=== PATIENT | female | born 1955 | race Caucasian/White ===

== ENCOUNTER 2024-08-08 08:45 | Emergency (ER) | payer MEDICARE, SELFPAY ==
[2024-08-08 08:57] VITALS: BP 132/76; PULSE 85; RESP 18; TEMP 36.4; O2SAT 97; BMI 34.2
--- NOTE | 2024-08-08 09:03 | CRLHL7_ITS ---
For Patients: As a result of the Century Cures Act, medical imaging exams and procedure reports are released immediately into your electronic medical record. You may view this report before your referring provider. If you have questions, please contact your health care provider. Indication: GI BLEED Technique: CT Abdomen/Pelvis W/ 93CC ISOVUE 370 Please note that all CT scans at this facility use dose modulation, iterative reconstruction, and/or weight-based dosing when appropriate to reduce radiation dose to as low as reasonably achievable. Comparison: None Findings: Mild atelectasis is present in both lung bases. The liver parenchyma is within normal limits with incidental focal fat deposition adjacent to the falciform ligament. The gallbladder is normal. Normal pancreas. Normal spleen. Incidental subcentimeter splenule. Adrenal glands normal. Normal kidneys. Ureter is within normal limits. Normal pancreas. Small fat filled umbilical hernia. Long segmental wall thickening of the distal left colon/proximal sigmoid colon extending over a length of approximately 10 cm. Associated wall thickening noted with inflammatory changes in the adjacent fat along with a few small subcentimeter nodules. Diverticular changes are present. No bowel obstruction, free air, free fluid or abscess. The bladder is normal. Normal uterus. Adnexa unremarkable. No fracture. Impression: Long segment wall thickening with diverticula involving the distal left colon/proximal sigmoid colon with associated acute inflammatory change and small adjacent mesenteric subcentimeter lymph nodes. Although the findings may represent acute uncomplicated diverticulitis superimposed upon chronic diverticulosis, can not exclude underlying malignancy and recommend colonoscopy for further evaluation. Please note that all CT scans at this facility use dose modulation, iterative reconstruction, and/or weight-based dosing when appropriate to reduce radiation dose to as low as reasonably achievable. Dictated by Carroll Zavala MD @ 08/08/2024 10:43:08 AM (Electronically Signed)
--- NOTE | 2024-08-08 09:04 | ED.GIBLEED ---
HPI - GI Bleed General Chief complaint: GI Bleed Stated complaint: Anal bleeding Time Seen by Provider: 08/08/24 08:57 History of Present Illness HPI Narrative: Patient is a 68-year-old woman who presents with the bright red blood per rectum for the last week. She began passing clots earlier today. She has no abdominal pain no rectal pain. No diarrhea. No fevers no chills no night sweats no reflux symptoms. No symptoms of dysphagia. Patient had normal colonoscopy 2016 and has had no similar problems previously. She takes no blood thinners or anticoagulants. No anti-platelet agents. Related Data Home Medications ?Medication ?Instructions ?Recorded ?Confirmed atorvastatin 1 tab PO HS 08/08/24 08/08/24 Allergies Allergy/AdvReac Type Severity Reaction Status Date / Time mold Allergy Unknown Verified 08/08/24 10:06 pollen extracts Allergy Unknown Verified 08/08/24 10:06 Review of Systems Status of ROS: Reports: 10 or more systems reviewed and unremarkable except as noted in History and below [facility] Medical History (Updated 08/08/24 @ 10:50 by Beny Mcallister MD) Hyperlipidemia ?E78.5 - Hyperlipidemia, unspecified (ICD-10) Hypertension ?I10 - Essential (primary) hypertension (ICD-10) Social History Smoking Status: Never smoker Do you use any of these nicotine containing products: None Second hand tobacco smoke exposure: No How often do you have a drink containing alcohol: monthly or less How often do you have six or more drinks on one occasion: Never AUDIT-C Alcohol total score: 1 Non-prescribed substance use: denies use Exam Narrative: Exam Narrative: EXAM GENERAL: Patient appears comfortable and well. EYES: No scleral icterus. LYMPH: No supraclavicular or cervical lymphadenopathy. SKIN: Visible skin seen during exam normal or with benign process only. EXT: No dependent lower extremity pedal edema. HEART: Regular rate and rhythm with no murmurs, rubs, or gallops. LUNGS: Clear to auscultation bilaterally with no crackles or wheezes. ABD: Soft, non tender, non distended. PSYCH: Good eye contact, speech is not pressured. Const: Vital Signs, click to edit/add: Vital Signs - 24 hr 08/08/24 08:57 08/08/24 10:00 Temperature 97.5 F L Pulse Rate [Pulse Oximeter] 85 69 Respiratory Rate 18 16 Blood Pressure [Ri ght Upper Arm] 132/76 135/74 Pulse Oximetry 97 98 Oxygen Delivery Me thod Room Air Room Air Course Course ED Course: Patient appears to be in no acute distress. CBC CMP PT PTT CT abdomen pelvis pending. Vital Signs Vital signs: Initial Vital Signs Temperature 97.5 F L 08/08/24 08:57 Temperature Source Temporal Artery Scan 08/08/24 08:57 Pulse Rate 85 08/08/24 08:57 Respiratory Rate 18 08/08/24 08:57 Blood Pressure 132/76 08/08/24 08:57 Blood Pressure Mean 94 08/08/24 08:57 Blood Pressure Position Sitting 08/08/24 08:57 Pulse Oximetry 97 08/08/24 08:57 Oxygen Delivery Method Room Air 08/08/24 08:57 Vital Signs Temperature 97.5 F L 08/08/24 08:57 Pulse Rate 85 08/08/24 08:57 Respiratory Rate 18 08/08/24 08:57 Blood Pressure 132/76 08/08/24 08:57 Pulse Oximetry 97 08/08/24 08:57 Oxygen Delivery Method Room Air 08/08/24 08:57 Temperature 97.5 F L 08/08/24 08:57 Pulse Rate 69 08/08/24 10:00 Respiratory Rate 16 08/08/24 10:00 Blood Pressure 135/74 08/08/24 10:00 Pulse Oximetry 98 08/08/24 10:00 Oxygen Delivery Method Room Air 08/08/24 10:00 MDM - GI Bleed MDM Narrative Medical decision making narrative: Patient is a 68-year-old woman who is not on any blood thinners or anti-platelet agents who comes in today with bright red blood per rectum. Her hemoglobin and vital signs are stable. Labs are normal. She does have diverticulitis noted on her CT scan at this time we will place her on Augmentin 875 b.i.d. for 10 days. She can use Tylenol for pain continue to monitor bleeding she does have follow-up in 3 days with her primary physician. Would recommend discussion of a repeat colonoscopy at that time. Her most recent colonoscopy was in 2017. Differential diagnosis includes but not limited to diverticular bleed diverticulitis colitis colon cancer colon polyps inflammatory bowel disease. Lab Data Labs: Lab Results 08/08/24 Range/Units 09:15 WBC 10.55 (4.50-11.00) K/uL RBC 4.30 (4.00-5.20) m/uL Hgb 13.8 (12.0-16.0) gm/dL Hct 41.8 (33.0-51.0) % MCV 97 (80-100) fL MCH 32 (26-34) pg MCHC 33 (32-36) gm/dL RDW Coeff of Clover 11.8 (11.5-15.5) % Plt Count 286 (140-440) K/uL Neut % (Auto) 75.5 H (42.0-72.0) % Lymph % (Auto) 13.4 L (20-44) % [place] % (Auto) 7.3 (0.0-11.0) % Eos % (Auto) 2.8 (0.0-7.0) % Baso % (Auto) 0.8 (0.0-3.0) % Neut # (Auto) 8.00 H (1.7-7.0) K/uL Lymph # (Auto) 1.40 (0.90-2.90) K/uL [place] # (Auto) 0.80 (0.00-0.90) K/UL Eos # (Auto) 0.30 (0.00-0.50) K/uL Baso # (Auto) 0.08 (0.00-0.30) K/uL Abs Immat Gran (auto) 0.02 (0.00-0.30) K/uL Imm/Tot Granulo (auto) 0.2 % INR 0.98 (0.91-1.10) APTT 25 (23-33) Seconds Sodium 137 (135-149) mmol/L Potassium 3.7 (3.6-5.1) mmol/L Chloride 98 (96-114) mmol/L Carbon Dioxide 30 (20-32) mmol/L Anion Gap 9 (7-15) mEq/L BUN 11 (7-30) mg/dL Creatinine 0.7 (0.5-1.5) mg/dL Estimated Creat Clear 42.59 Estimated GFR 94 ml/min Glucose 115 (60-115) mg/dL Calcium 9.4 (8.4-10.6) mg/dL Total Bilirubin 0.5 (0.1-1.5) mg/dL AST 30 (12-35) U/L ALT 23 (4-35) U/L Alkaline Phosphatase 94 (40-150) U/L Total Protein 7.8 (6.0-8.3) g/dL Albumin 4.6 (3.3-5.0) g/dL Discharge Plan Discharge Clinical Impression: Diverticulitis Instructions: Diverticulitis (ED) Additional Instructions: Augmentin as directed Tylenol Monitor bleeding carefully Follow-up on Saturday to discuss further lab work and possible colonoscopy. Activity Level: No Restrictions Discharge Diet: Regular Prescriptions: No Action atorvastatin [Lipitor] 1 tab PO HS Follow Up/Referrals: Stella Coyne MD [Primary Care Provider] - Stand Alone Forms: MyHealth Info Instructions
--- OUTSIDE RECORDS SUMMARY | 2024-08-08 09:15 | XMS_ITS | Clinical Summary ---
Author Organization [facility] Address [place], [place] [address] Care Team Providers Care Domestic Freight Forwarder Name Role Phone Clinic, No Pcp Or Primary Care Provider Unavaila ble Allergies No known active allergies Medications Medication Sig Dispensed Refills Start Date End Date Status Cholecalciferol, Vitamin D3, 400 unit capsule Active artificial tears, peg 400 0.4%-propylene glycol 0.3%, (Systane, propylene glycoL,) ophthalmic Place 1-2 Drops into both eyes once daily if needed for Dry Eyes. Active multivitamin capsule Take 1 Tablet by mouth once daily. Active vitamin E acetate (VITAMIN E ORAL) Active polyethylene glycol-electrolyte (GOLYTELY) 236-22.74-6.74 -5.86 gram suspensionIndication s:Encounter for screening colonoscopy Drink 2 liters the day before the procedure and 2 liters 6 hours prior to procedure. 4000 mL 10/11/2023 Active atorvastatin (Lipitor) 40 mg tabletIndications:Hy percholesterolemia Take 1 Tablet (40 mg) by mouth at bedtime. 100 Tablet 3 10/01/2023 Active Active Problems Problem Noted Date Diagnosed Date Hypercholesterolemia 09/24/2023 Encounters Date Type Department Care Team Description 08/07/2024 Travel from Last 3 Months Immunizations Name Administration Dates Next Due Influenza, IIV4 07/20/2020 Influenza, IIV4 (=>6mos) MDV 08/28/2019 Influenza, Inactivated AIIV4 (Age 65+ Years) Preserv Free 09/23/2023 Td (Age >=7 Years) 12/16/2003 Tdap 01/22/2014 Family History Medical History Relation Name Comments No Known Problems Brother 1 Rod No Known Problems Brother 2 Heber No Known Problems Brother 3 Constantine Other Daughter Maren Tetrology of llot COPD Father Heart Disease Father Heart attack Mother No Known Problems Sister 1 Missy No Known Problems Sister 2 Suzanne No Known Problems Sister 3 Nati Relation Name Status Comments Brother 1 Rod Alive Brother 2 Heber Alive Brother 3 Constantine Alive Daughter Maren Alive Father Maternal Grandfather Maternal Grandmother Mother Paternal Grandfather Paternal Grandmother Sister 1 Missy Alive Sister 2 Suzanne Alive Sister 3 Nati Alive Social History Tobacco Use Types Packs/Day Years Used Date Smoking Tobacco: Former Cigarettes 1 8 1 - 1980 Passive Smoke Exposure: Past Smokeless Tobacco: Never Tobacco Cessation:Counseling Given: Yes Alcohol Use Standard Drinks/Week Comments Yes 6 (1 standard drink = 0.6 oz pure alcohol) 5-6 days a week; 1-2 drinks at a time PHQ-2 Answer Date Recorded PHQ-2 TOTAL SCORE 1 09/23/2023 Social Connections Answer Date Recorded Frequency of Communication with Friends and Fami ly 0 09/23/2023 Financial Resource Strain Answer Date R ecorded Difficulty of Paying Living Expenses 3 09/23/2023 Difficulty of Paying Living Expenses Not on file 09/23/2023 Food Insecurity Answer Date Recorded Do you worry your food will run out before you are able to buy more? 1 09/23/2023 Transportation Needs Answer Date Record ed Lack of Transportation (Medical) 1 09/23/2023 Housing Stability Answer Date Recorded What is your housing situation today? 1 09/23/2023 Sex and Gender Information Value Date Recorded Sex Assigned at Not on file Gender Identity Not on file Sexual Orientation Not on file Obstetrics History Para Term AB IAB SAB Ectopic Multiple Livin g Live Births 1 1 1 1 1 Date Outcome GA Total Labor Labor/2nd/3rd Weight Sex Type Anes PTL Susan A1 A5 Name Clin 09/11 Term F Vag Living Hanh e Last Filed Vital Signs Vital Sign Reading Time Taken Comments Blood Pressure 128/68 09/23/2023 8:23 AM LABEL PINKER Pulse 80 09/23/2023 8:23 AM LABEL PINKER Temperature - - Respiratory Rate - - Oxygen Saturation - - Inhaled Oxygen Concentration - - Weight 85.7 kg (189 lb) 09/23/2023 8:23 AM LABEL PINKER Height 157.5 cm (5' 2) 09/23/2023 8:23 AM LABEL PINKER Body Mass Index 34.57 09/23/2023 8:23 AM LABEL PINKER Plan of Treatment Upcoming Encounters Date Type Department Care Team (Late st Contact Info) Description 08/11/2024 8:20 AM CDT [place] [facility] [place] [id number] [place], [place] [id number] [place] [id number] [place], [place] [id number] Health Maintenance Due Date Last Done Comments Zoster (shingles) series for age 50+ (1 of 2) 2005 Pneumococcal series for age 65+ (1 of 1 - PCV) 2020 Tetanus booster 01/23/2024 01/22/2014, 12/16/2003 COVID-19 vaccine series ( season) 2024 02/08/2021, 01/18/2021 Influenza for age 65+ 06/14/2024 09/23/2023 , 07/20/2020, 08/28/2019 BMI (ht and wt on same day) for age 18+ 09/23/2024 09/23/2023 Medicare Wellness for age 65+ 09/23/2024 09/23/2023 Depression screening for age 12+ 10/01/2024 10/01/2023, 09/24/2023, 09/23/2023, Additional history exists Mammogram for age 45-75 10/30/2024 10/30/2023 Colonoscopy through age 75 07/12/202707/12 (Verified in Care Everywhere or Patient Record) Lipids for age 45-75 01/20/2029 01/21/2024, 09/23/20 Tdap Completed 01/22/2014 Hepatitis C screening for ag e 18-79 Completed 09/23/2023 DEXA/DXA scan for age 65+ Completed 10/28/2023 Procedures Procedure Name Priority Date/Time Associated Diagnosis Comments LIPID PANEL W REFLEX MEASURED LDL Routine 01/21/2024 8:45 AM CDT Hypercholesterolemi a XR MAMMO KELVIN BILAT SCREEN Routine 10/30/2023 8:47 AM LABEL PINKER Encounter for screening mammogram for malignant neoplasm of breast XR DXA BONE DENSITY 2 SITES AXIAL Routine 10/28/2023 11:14 AM LABEL PINKER Menopause ANTI HCV Routine 09/23/2023 9:00 AM LABEL PINKER Need for hepatitis C screening test from Last 3 Months or Most Recently Relevant to Health Maintenance Results * LIPID PANEL W REFLEX MEASURED LDL (01/21/2024 8:45 AM CDT) Pathologist [facility] CHOLESTEROL,TOTAL 199 100 - 199 mg/dL 01/21/2024 4:17 PM CDT [facility] Comment: Cholesterol, Total Reference Ranges Desirable <200 mg/dL Borderline 200-239 mg/dL High >=240 mg/dL TRIGLYCERIDES 131 <150 mg/dL 01/21/2024 4:17 PM CDT [facility] HDL CHOLESTEROL 74 >40 mg/dL 4:17 PM CDT [facility] NON-HDL CHOLESTEROL 125 <145 mg/dl 01/21/2024 4:17 PM CDT [facility] CHOL/HDL RATIO 2.69 <4.50 01/21/2024 4:17 PM CDT [facility] LDL CHOLESTEROL 99 <=130 mg/dL 01/21/2024 4:17 PM CDT [facility] VLDL CHOLESTEROL 26 <=30 mg/dL 01/21/2024 4:17 PM CDT [facility] PROVIDER ORDERED STATUS RANDOM 01/21/2024 4:17 PM CDT [facility] Blood BLOOD SPECIMEN / Unknown Venipuncture / Unknown 01/21/2024 8:45 AM CDT 01/21/2024 8:45 AM CDT Stella Coyne MD CHEMISTRY [facility] [address] [place] [address], [place] * XR MAMMO KELVIN BILAT SCREEN (10/30/2023 8:47 AM LABEL PINKER) Anatomical Region Laterality Modality BREASTS, Breast Left, Breast Right Bilateral Mammography Impressions 10/30/2023 4:21 PM LABEL PINKER ??There is no radiographic evidence for malignancy. ??Recommend annual mammograms. MAMMOGRAM ASSESSMENT: ??ACR 1 Negative PATIENTS: You will also receive a letter with your examination results in an easy to read format. ??If you have questions about your results, please contact your referring provider. Narrative 10/30/2023 4:21 PM LABEL PINKER For Patients: As a result of the Century Cures Act, medical imaging exams and procedure reports are released immediately into your electronic medical record. You may view this report before your referring provider. If you have questions, please contact your health care provider. XR MAMMO KELVIN BILAT SCREEN [[id number]] CLINICAL HISTORY: ??This is an asymptomatic 67 y.o. patient. INDICATION FOR EXAM: Mammogram Screening. TECHNIQUE: CC & MLO views were obtained. ??This study was evaluated with the assistance of Computer-Aided Detection. Breast Tomosynthesis was used in interpretation. COMPARISON FILM: Yes 09/23/20 Outside Facility 08/21/18 Outside Facility FINDINGS: ??The breasts have scattered areas of fibroglandular density. There are no dominant masses, suspicious micro calcifications or areas of architectural distortion. Stella Coyne MD MAMMO * (ABNORMAL) XR DXA BONE DENSITY 2 SITES AXIAL (10/28/2023 11:14 AM LABEL PINKER) Anatomical Region Laterality Modality Spine, HIPS, HIPL, HIPR Other Impressions 10/30/2023 4:46 PM LABEL PINKER Osteopenia. RECOMMENDATIONS: The National Osteoporosis Foundation recommends pharmacologic treatment for patients with T-scores of -2.5 or less, patients with prior history of fragility fractures, or patients with 10-year probability of greater than 3% at hips or greater than 20% of suffering major osteoporotic fractures. Recommend continued optimization of calcium and vitamin D intake through dietary means and/or supplementation and regular exercise. Repeat scan recommended in 3-5 years. Renu Gupta PA-C [facility] 10/30/2023 Narrative 10/30/2023 4:46 PM LABEL PINKER For Patients: Results are automatically released to your [facility] account once available, in compliance with federal regulations. This means that you may see your results before your provider has had a chance to review them. Please allow 2-3 business days for your provider to comment on the results. XR DXA Bone Mineral Density (BMD) EXAM LOCATION: [address] [address] PATIENT NAME: Lynn Meyer DATE OF : 1955 EXAM DATE: 10/28/2023 REQUESTING PROVIDER: Stella Coyne MD GENDER AT : female HEIGHT: 5' 2 (09/23/2023) WEIGHT: ??189 lb (09/23/2023) MENOPAUSAL STATUS: Postmenopausal RACE/ETHNICITY: White RISK FACTORS: History of Fragility Fracture (at a major site), Menopause < Age 40, Smoking (prior), and White Race CURRENT MEDICATION FOR BONE LOSS: NONE INDICATION: Menopause COMPARISON DATE(S): None DXA scans are compared to prior studies for a patient only when the two (or more) studies were performed on the same scanner. It is not possible to compare data generated on one scanner to data from another because there are not standards in DXA equipment. This applies even if the two scanners are made by the same reefer engineer. PROCEDURE: Dual-energy x-ray absorptiometry performed with routine technique. Reporting is completed in the form of a T-score. The T-score represents the standard deviation from peak bone mass based on young healthy adult. A Z-score is used for diagnosis in premenopausal women, and for men under the age of 50. FINDINGS: RESULT LUMBAR SPINE L1 - L4 BMD: 1.010 g/cm2 T-Score: - 1.5 Z-Score: - 0.6 Change from prior: ??None RESULTS FEMUR Left femoral neck BMD: 0.841 g/cm2 T-Score: - 1.4 Z-Score: - 0.3 Change from prior: ??None Right femoral neck BMD: 0.865 g/cm2 T-Score: - 1.2 Z-Score: - 0.1 Change from prior: ??None Left hip BMD: 0.925 g/cm2 T-Score: - 0.7 Z-Score: + 0.2 Change from prior: ??None Right hip BMD: 1.017 g/cm2 T-Score: + 0.1 Z-Score: + 0.9 Change from prior: ??None WHO criteria: Normal: T-score at or above -1 SD Osteopenia: T-score between -1.1 and -2.4 SD Osteoporosis: T-score at or below -2.5 SD FRAX RISK CALCULATION (USED FOR OSTEOPENIA ONLY): 10-year probability of major osteoporotic fracture: 14.2%. 10-year probability of hip fracture: 1.6%. Stella Coyne MD DEXA * ANTI HCV (09/23/2023 9:00 AM LABEL PINKER) Pathologist [facility] HEPATITIS C ANTIBODY Non-Reacti ve Non-React florentin 09/23/2023 6:32 PM LABEL PINKER [facility] Comment:Please note, per www .CDC.gov: If a patient is known to be at high risk of HCV infection, or is symptomatic, and the physician's suspicion of HCV infection is high, HCV RNA testing is often employed and is of diagnostic value, even after an initial negative anti-HCV test result. Blood BLOOD SPECIMEN / Unknown Venipuncture / Unknown 09/23/2023 9:00 AM LABEL PINKER 09/23/2023 9:01 AM LABEL PINKER Stella Coyne MD SEND OUTS [facility] [address] [place] [address], from Last 3 Months or Most Recently Relevant to Health Maintenance Care Teams Domestic Freight Forwarder Relationship Specialty Start Date End Date Clinic, No Pcp Or . PCP - General 09/09/23
[2024-08-08 09:25] LABS: Basophils Absolute Auto 0.08 K/uL (0.00-0.30); Basophils Percent Auto 0.8 % (0.0-3.0); Eosinophils Percent Auto 2.8 % (0.0-7.0); Hematocrit 41.8 % (33.0-51.0); Hemoglobin* 13.8 gm/dL (12.0-16.0); Immature Granulocytes Abs Auto 0.02 K/uL (0.00-0.30); Immature Granulocytes Pct Auto 0.2 %; Lymphocytes Percent Auto 13.4 % (20-44); Mean Corpuscular HGB Conc 33 gm/dL (32-36); Mean Corpuscular Hemoglobin 32 pg (26-34); Mean Corpuscular Volume 97 fL (80-100); Monocytes Percent Auto 7.3 % (0.0-11.0); Neutrophils Percent Auto 75.5 % (42.0-72.0); Platelet Count* 286 K/uL (140-440); RDW Coefficient of Variation % 11.8 % (11.5-15.5); White Blood Count* 10.55 K/uL (4.50-11.00)
[2024-08-08 09:26] LABS: Slide Review Reflex No
[2024-08-08 09:43] LABS: Albumin* 4.6 g/dL (3.3-5.0); Chloride* 98 mmol/L (96-114); Sodium* 137 mmol/L (135-149)
[2024-08-08 09:44] LABS: Potassium* 3.7 mmol/L (3.6-5.1)
[2024-08-08 09:46] LABS: Alanine Aminotransferase* 23 U/L (4-35); Alkaline Phosphatase* 94 U/L (40-150); Anion Gap 9 mEq/L (7-15); Aspartate Amino Transferase* 30 U/L (12-35); Bilirubin Total* 0.5 mg/dL (0.1-1.5); Blood Urea Nitrogen* 11 mg/dL (7-30); Carbon Dioxide* 30 mmol/L (20-32); Creatinine* 0.7 mg/dL (0.5-1.5); Est. Creatinine Clearance* 42.59; Estimated Glomerular Filt Rate 94 ml/min; Glucose* 115 mg/dL (60-115); INR 0.98 (0.91-1.10); Prothrombin Time 13.5 Seconds; Total Protein* 7.8 g/dL (6.0-8.3)
[2024-08-08 09:47] LABS: Calcium* 9.4 mg/dL (8.4-10.6); Partial Thromboplastin Time* 25 Seconds (23-33)
[2024-08-08 10:00] VITALS: BP 135/74; PULSE 69; RESP 16; O2SAT 98
== END 2024-08-08 11:03 | disposition home or self-care (01) ==
PROVIDERS: Emergency Provider Internal Medicine; PCP Family Medicine
DX: K57.92 Diverticulitis of intestine, part unspecified, without perforation or abscess without bleeding (principal)
CPT/HCPCS: 36415; 74177; 80053; 85025; 85610; 85730; 99283; 99284; 99285; Q9967

== ENCOUNTER 2025-01-11 11:51 | Emergency (ER) | payer MEDICARE, SELFPAY ==
[2025-01-11] VITALS (8 sets, daily range): BP systolic 179–190; BP diastolic 82–100; PULSE 72–87; RESP 18; TEMP 36.2; O2SAT 96–98; BMI 34.0
--- OUTSIDE RECORDS SUMMARY | 2025-01-11 11:54 | XMS_ITS | Encounter Summary ---
Author Organization [facility] Address [address] [place] [address] Care Team Providers Care Scrap Picker Name Role Phone Alea Jones MD, Remi Esparza Primary Care Provide r Encounter Details Date Type Department Care Team (Late st Contact Info) Description 10/31/2015 Correspondence None No Primary/Referring, Phy CHIROPRACTIC PATIENT LIAB NOTIFICATION AND AGRMNT Social History Tobacco Use Types Packs/Day Years Used Date Smoking Tobacco: Former Cigarettes 0 1976 - 1981 Smokeless Tobacco: Never Comments:age 25 Alcohol Use Standard Drinks/Week Comments Yes 0 (1 standard drink = 0.6 oz pur e alcohol) Comments No Sex and Gender Information Value Date Recorded Sex Assigned at Not on file Legal Sex Female 5:02 AM CDT Gender Identity Not on file Sexual Orientation Not on file 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 Not on file Not on file documented as of this encounter Plan of Treatment Not on file documented as of this encounter Visit Diagnoses Not on filedocumented in this encounter Additional Health Concerns Infection Onset Date Last Indicated Resolved Time R/O COVID19 09/10/2020 09/10/2020 09/12/2020 8:25 AM ARCHITECTURAL ENGINEER COVID19 09/10/2020 09/10/2020 10/01/2020 3:17 AM ARCHITECTURAL ENGINEER documented as of this encounter Care Teams Scrap Picker Relationship Specialty Start Date End Date Remi Cosby MD [address] [place] [address] PCP - General 05/14/06 documented as of this encounter
--- OUTSIDE RECORDS SUMMARY | 2025-01-11 11:54 | XMS_ITS | Encounter Summary ---
Author Organization [facility] Address [address] [place] [address] Care Team Providers Care Service Delivery Consultant Name Role Phone Alea Jones MD, Remi Esparza Primary Care Provide r Encounter Details Date Type Department Care Team (Late st Contact Info) Description 07/12/2017 Consent for Procedure/Treatme nt [facility] INFORMED CONSENT RECORD Social History Tobacco Use Types Packs/Day Years Used Date Smoking Tobacco: Former Cigarettes 0 1976 - 1981 Smokeless Tobacco: Never Comments:age 25 Alcohol Use Standard Drinks/Week Comments Yes 3 (1 standard drink = 0.6 oz pur [...] R/O COVID19 09/10/2020 09/10/2020 09/12/2020 8:25 AM DEICER KIT ASSEMBLER COVID19 09/10/2020 09/10/2020 10/01/2020 3:17 AM DEICER KIT ASSEMBLER documented as of this encounter Care Teams Service Delivery Consultant Relationship Specialty Start Date End Date Remi Cosby MD [address] [place] [address] PCP - General 05/14/06 documented as of this encounter
--- OUTSIDE RECORDS SUMMARY | 2025-01-11 11:54 | XMS_ITS | Clinical Summary ---
Author Organization [employer] [facility] Address [address] [place] [id number] Care Team Providers Care International Affairs Vice President Name Role Phone Clinic, No Pcp Or Primary Care Provider Unavaila ble Allergies Active Allergy Reactions Criticality Noted Date Comments Mold Shortness Of Breath 08/08/2024 Pollen Extracts Shortness Of Breath 08/08/2024 Medications Cholecalciferol, Vitamin D3, 400 unit capsule Active artificial tears, peg 400 0.4%-propylene glycol 0.3%, (Systane, propylene glycoL,) ophthalmic Place 1-2 Drops into both eyes once daily if needed for Dry Eyes. Active multivitamin capsule Take 1 Tablet by mouth once daily. Active vitamin E acetate (VITAMIN E ORAL) Active CALCIUM ORAL Take by mouth. Active ascorbic acid (ABEL-C ORAL) Take by mouth. Active atorvastatin (Lipitor) 40 mg tabletIndication s:Hypercholester olemia Take 1 Tablet (40 mg) by mouth at bedtime. 100 Tablet 3 11/26/2024 Active Active Problems Problem Noted Date Diagnosed Date Environmental allergies 09/16/2024 Dizziness 03/18/2014 Backache 04/12/2009 Pure hypercholesterolemia 03/01/2005 Mixed incontinence urge and stress (male)(female ) 04/14/2004 Overview (09/16/2024): URGE & STRESS MIXED INCONTINENCE(aka INCONTIN) Obesity 04/14/2004 Overview (09/16/2024): Epic Resolved Problems Problem Noted Date Diagnosed Date Resolved Date Diverticulitis 09/16/2024 09/16/2024 Closed fracture of right pub is with routine healing 07/03/2020 09/16/2024 Right hip pain 07/03/2020 09/16/2024 Encounters Date Type Department Care Team Description 01/11/2025 Nurse Triage [facility] Centralized Nurse Triage Clinic, No Pcp Or Fall (Head injury) 11/26/2024 11:00 AM [facility] Ancillary Procedure [facility] [address] [place] [address] 11/26/2024 7:40 AM [facility] Office Visit [facility] [address] [place] [address] Stella Coyne MD Medicare ANNUAL (subsequent) Visit 11/26/2024 Travel 11/25/2024 Refill [facility] [address] [place] [address] Stella Coyne MD Refill Request (Atorvastatin) 11/21/2024 Travel from Last 3 Months Immunizations Immunization Administration Dates Next Due Influenza, IIV4 07/20/2020 Influenza, IIV4 (=>6mos) MDV 08/28/2019 Influenza, Inactivated AIIV4 (Age 65+ Years) Preserv Free 09/23/2023 Td (Age >=7 Years) 12/16/2003 Tdap 01/22/2014 Family History Medical History Relation Name Comments No Known Problems Brother 1 Rod No Known Problems Brother 2 Heber No Known Problems Brother 3 Constantine Tetrology of Fallot Daughter Maren COPD Father Heart Disease Father Heart attack [...] Smoking Tobacco: Former Cigarettes 1 8 1 973 - 1981 Passive Smoke Exposure: Past Smokeless Tobacco: Never Tobacco Cessation:Counseling Given: Yes Alcohol Use Standard Drinks/Week Comments Yes 2 (1 standard drink = 0.6 oz pure alcohol) 2-3 days a week; 1-2 drinks at a time PHQ-2 Answer Date Recorded PHQ-2 TOTAL SCORE 0 11/26/2024 Social Connections Answer Date Recorded Do you often feel lonely or isolated from those around you? 0 11/26/2024 Financial Resource Strain Answer Date R ecorded Difficulty of Paying Living Expenses 3 11/26/2024 Difficulty of Paying Living Expenses Not on file 11/26/2024 Food Insecurity Answer Date Recorded Do you worry your food will run out before you are able to buy more? 1 11/26/2024 Transportation Needs Answer Date Record ed Does lack of transportation keep you from medica l appointments? 1 11/26/2024 Does lack of transportation keep you from work, meetings or getting things that you need? 1 11/26/2024 Housing Stability Answer Date Recorded What is your housing situation today? 1 11/26/2024 Utilities Answer Date Recorded Do you have trouble paying f or utilities (for example, heat, electricity, water, phone)? 1 11/26/2024 Comments No Sex and Gender Information Value Date Recorded Sex Assigned at Not on file Legal Sex Female 10:26 AM CDT Gender Identity Not on file Sexual Orientation Not on file Occupation Industry Job Start Date Job End Date Retired Not on file Not on file Not on file Obstetrics History Para Term AB IAB SAB Ectopic Multiple Livin g Live Births 1 1 1 1 1 Date Outcome GA Total Labor Labor/2nd/3rd Weight Sex Type Anes PTL Susan A1 A5 Name Clin 09/11 Term F Vag Living Hanh e Last Filed Vital Signs Vital Sign Reading Time Taken Comments Blood Pressure 138/84 11/26/2024 7:47 AM [facility] Pulse 74 11/26/2024 7:47 AM [facility] Temperature 36.9 C (98.4 F) 09/16/2024 8:56 AM [facility] Respiratory Rate - - Oxygen Saturation 95% 11/26/2024 7:47 AM [facility] Inhaled Oxygen Concentration - - Weight 84.5 kg (186 lb 4.8 oz) 11/26/2024 7:47 A M [facility] Height 157 cm (5' 1.81) 11/26/2024 7:47 AM [facility] Body Mass Index 34.28 11/26/2024 7:47 AM [employer] Plan of Treatment Health Maintenance Due Date Last Done Comments Pneumococcal series for age 50+ (1 of 1 - PCV) 2005 Zoster (shingles) series for age 50+ (1 of 2) 2005 RSV vaccine for adults or (1 - Risk 60-74 years 1-dose series) 2015 Tetanus booster 01/23/2024 01/22/2014, 12/16/2003 COVID-19 vaccine series (3 - season) 2024 02/08/2021, 01/18/2021 Influenza Vaccine (#1) 2024 , 07/20/2020, 08/28/2019 BMI (ht and wt on same day) for age 18+ 11/26/2025 11/26/2024, 09/16/2024, 09/23/2023 Depression screening for age 12+ 11/26/2025 11/26/2024, 10/01/2023, 09/24/2023, Additional history exists Mammogram for age 45-75 11/26/2025 11/26/2024, 10/30 Medicare Wellness for age 65+ 11/27/2025 11/26/2024, 09/23/2023 Lipids for age 45-75 11/26/2029 11/26/2024, 01/21/2024, 09/23/2023 Colonoscopy through age 75 09/28/203409/28, 07/12/2017 (Verified in Care Everywhere or Patient Record) Tdap Completed 01/22/2014 Hepatitis C screening for ag e 18-79 Completed 09/23/2023 DEXA/DXA scan for age 65+ Completed 10/28/2023 Procedures Procedure Name Priority Date/Time Associated Diagnosis Comments XR MAMMO KELVIN BILAT SCREEN Routine 11/26/2024 11:12 AM FAC[facility] Visit for screening mammogram LIPID PANEL W REFLEX MEASURED LDL Routine 11/26/2024 8:04 AM FAC[facility] Hypercholesterolemi a GLUCOSE, FASTING Routine 11/26/2024 8:04 AM FAC[facility] Screening for diabetes mellitus COLONOSCOPY DIAGNOSTIC Routine 09/28/2024 12:00 AM [facility] Diverticulitis XR DXA BONE DENSITY 2 SITES AXIAL Routine 10/28/2023 11:14 AM FAC[facility] Menopause ANTI HCV Routine 09/23/2023 9:00 AM [facility] Need for hepatitis C screening test from Last 3 Months or Most Recently Relevant to Health Maintenance Results * XR MAMMO KELVIN BILAT SCREEN (11/26/2024 11:12 AM FACING [facility]) Anatomical Region Laterality Modality BREASTS, Breast Left, Breast Right Bilateral Mammography Impressions 11/26/2024 3:29 PM [facility] There is no radiographic evidence for malignancy. Recommend annual mammograms. MAMMOGRAM ASSESSMENT: ACR 1 Negative PATIENTS: You will also receive a letter with your examination results in an easy to read format. If you have questions about your results, please contact your referring provider. Narrative 11/26/2024 3:29 PM [facility] For Patients: As a result of the Century Cures Act, medical imaging exams and procedure reports are released immediately into your electronic medical record. You may view this report before your referring provider. If you have questions, please contact your health care provider. XR MAMMO KELVIN BILAT SCREEN [[id number]] CLINICAL HISTORY: This is an asymptomatic 69 y.o. patient. INDICATION FOR EXAM: Mammogram Screening. TECHNIQUE: CC & MLO views were obtained. This study was evaluated with the assistance of Computer-Aided Detection. Breast Tomosynthesis was used in interpretation. COMPARISON FILM: Yes 10/30/23 [facility] FINDINGS: There are scattered areas of fibroglandular density. There are no dominant masses, suspicious micro calcifications or areas of architectural distortion. us Stella Coyne MD MAMMO Final R esult * (ABNORMAL) LIPID PANEL W REFLEX MEASURED LDL (11/26/2024 8:04 AM FACING [facility]) CHOLESTEROL, TOTAL 195 <200 mg/dL [facility] HDL CHOLESTEROL 77 > OR = 50 mg/dL [facility] TRIGLYCERIDES 168(H) <150 mg/dL [facility] LDL-CHOLESTEROL 91 mg/dL (calc) [facility] Comment: Reference range: <100 Desirable range <100 mg/dL for primary prevention; <70 mg/dL for patients with CHD or diabetic patients with > or = 2 CHD risk factors. LDL-C is now calculated using the Victoria calculation, which is a validated novel method providing better accuracy than the Friedewald equation in the estimation of LDL-C. Deonte SS et al. KARY. 2013;310(71): 6514-3770 (http://education.getFound.ie/faq/FPW367) CHOL/HDLC RATIO 2.5 <5.0 (calc) [facility] NON HDL CHOLESTEROL 118 <130 mg/dL (calc) [facility] Comment: For patients with diabetes plus 1 major ASCVD risk factor, treating to a non-HDL-C goal of <100 mg/dL (LDL-C of <70 mg/dL) is considered a therapeutic option. Blood BLOOD SPECIMEN / Unknown 11/26/2024 8:04 AM [facility] 11/26/2024 8:04 AM [employer] [facility] [employer] us Stella Coyne MD CHEMISTRY Final R esult [facility] [address] [place] [address], [facility] [address] [place] [address] * (ABNORMAL) GLUCOSE, FASTING (11/26/2024 8:04 AM FAC[facility]) [facility] GLUCOSE 108(H) 65 - 99 mg/dL [facility] Comment: Fasting reference interval For someone without known diabetes, a glucose value between 100 and 125 mg/dL is consistent with prediabetes and should be confirmed with a follow-up test. Blood BLOOD SPECIMEN / Unknown 11/26/2024 8:04 AM [facility] 11/26/2024 8:04 AM F[employer] [facility] us Stella Coyne MD CHEMISTRY Final R esult [facility] [address] [place] [address], [facility] [address] [place] [address] * COLONOSCOPY DIAGNOSTIC (09/28/2024 12:00 AM FAC[facility]) Stella Coyne MD GI PROCEDURE ORD Final Result * (ABNORMAL) XR DXA BONE DENSITY 2 SITES AXIAL (10/28/2023 11:14 AM FAC[employer] [facility] [employer]) Anatomical Region Laterality Modality Spine, HIPS, HIPL, HIPR Other Impressions 10/30/2023 4:46 PM [facility] Osteopenia. RECOMMENDATIONS: The National Osteoporosis Foundation recommends [...] recommended in 3-5 years. Renu Gupta PA-C [facility] 10/30/2023 Narrative 10/30/2023 4:46 PM [employer] For Patients: Results are automatically released to your cloudswave ([employer]) account once available, in compliance with federal regulations. This means that you may see your results before your provider has had a chance to review them. Please allow 2-3 business days for your provider to comment on the results. XR DXA Bone Mineral Density (BMD) EXAM LOCATION: [facility] [address] [facility] [id number] PATIENT NAME: Lynn Meyer DATE OF : 1955 EXAM DATE: 10/28/2023 REQUESTING PROVIDER: Stella Coyne MD GENDER AT : female HEIGHT: 5' 2 (09/23/2023) WEIGHT: 189 lb (09/23/2023) MENOPAUSAL STATUS: Postmenopausal RACE/ETHNICITY: White [...] two scanners are made by the same bar turner. PROCEDURE: Dual-energy x-ray absorptiometry performed with routine [...] 1.5 Z-Score: - 0.6 Change from prior: None RESULTS FEMUR Left femoral neck BMD: 0.841 g/cm2 T-Score: - 1.4 Z-Score: - 0.3 Change from prior: None Right femoral neck BMD: 0.865 g/cm2 T-Score: - 1.2 Z-Score: - 0.1 Change from prior: None Left hip BMD: 0.925 g/cm2 T-Score: - 0.7 Z-Score: + 0.2 Change from prior: None Right hip BMD: 1.017 g/cm2 T-Score: + 0.1 Z-Score: + 0.9 Change from prior: None WHO criteria: Normal: T-score at or above -1 SD Osteopenia: T-score between -1.1 and -2.4 SD Osteoporosis: T-score at or below -2.5 SD FRAX RISK CALCULATION (USED FOR OSTEOPENIA ONLY): 10-year probability of major osteoporotic fracture: 14.2%. 10-year probability of hip fracture: 1.6%. us Stella Coyne MD DEXA Final R esult * ANTI HCV (09/23/2023 9:00 AM FAC[employer] [facility]) HEPATITIS C ANTIBODY Non-Reacti ve Non-React florentin 09/23/2023 6:32 PM [facility] Comment:Please note, per www .CDC.gov: If a patient is known to be at high risk of HCV infection, or is symptomatic, and the physician's suspicion of HCV infection is high, HCV RNA testing is often employed and is of diagnostic value, even after an initial negative anti-HCV test result. Blood BLOOD SPECIMEN / Unknown Venipuncture / Unknown 09/23/2023 9:00 AM [employer] [facility] [employer] 09/23/2023 9:01 AM F[employer] [facility] [employer] us Stella Coyne MD SEND OUTS Final R esult [facility] [address] [place] [address], [place] from Last 3 Months or Most Recently Relevant to Health Maintenance Insurance [facility] MR Care Teams International Affairs Vice President Relationship Specialty Start Date End Date Clinic, No Pcp Or . PCP - General 09/09/23
--- OUTSIDE RECORDS SUMMARY | 2025-01-11 11:54 | XMS_ITS | Clinical Summary ---
Author Organization Formerly [facility], [facility] Address [address] [place] [address] Care Team Providers Care Aquatic Facility Manager Name Role Phone Alea Jones MD, Roan Sigrid Primary Care Provide r Source Comments You are receiving this document as you are listed as the primary care provider,follow-up provider, or the patient has been referred to you for consultation.This is in compliance with the Medicare and[employer] EHR Incentive Program,which states Providers who transition their patient to another setting of careor provider of care or refers their patient to another provider of care shouldprovide summary care record for each transition of care or referral. [facility] Allergies Active Allergy Reactions Criticality Noted Date Comments Pollen Extract/Tree Extract Itching,Runny Nose High 02/04/2009 Allergic to mold and ragweed. Medications VITAMIN C CR 1000 MG OR TBCR one per day 0 10/22/2006 A ctive ZYRTEC 10 MG OR TABS (ANTI-HISTAMINE ) One by mouth every day 90 2 07/29/2007 Active CALCIUM CARBONATE 1500 MG OR TABSIndications :Esophageal reflux,Varicose vein 1 tab daily 0 06/18/2008 Active Cholecalciferol (VITAMIN D) 400 UNIT Active Naphazoline-Phe niramine (OPCON-A) 0.027-0.315 % eye drop solution Apply or instill into both eyes. Active Polyethyl Glycol-Propyl Glycol (SYSTANE) 0.4-0.3 % eye drop solution 1-2 Drops. Activ e polyvinyl alcohol-povidon e (REFRESH) 1.4-0.6 % eye drop solution 1-2 Drops every 4 hours as needed. Active VITAMIN E OR Active multivitamin (THERAGRAN) tablet Take 1 Tablet by mouth daily. Active Active Problems Problem Noted Date Diagnosed Date Right hip pain 07/03/2020 Closed fracture of right pubis with routine heal ing 07/03/2020 Difficulty walking 07/03/2020 Dizziness 03/18/2014 Lumbago 02/01/2012 Sprain and strain of unspecified site of hip and thigh 02/01/2012 Backache 04/12/2009 Overview (07/14/2015): [facility] Telangiectasia 07/15/2008 Pure hypercholesterolemia 03/01/2005 Esophageal reflux 04/14/2004 Overview (06/05/2017): ESOPHAGEAL REFLUX(aka GERD) Mixed incontinence urge and stress (male)(female ) 04/14/2004 Overview (06/05/2017): URGE & STRESS MIXED INCONTINENCE(aka INCONTIN) Obesity 04/14/2004 Overview (07/14/2015): [facility] Immunizations Immunization Administration Dates Next Due Flu Vac (3+ yrs) 07/07/2009,08/13/2008 Influenza IIV4 (Quadrivalent ) 0.5mL (23859) 07/20/2020 Influenza, Unspecified Formulation 08/29,08/16/2014,08/10/2013,2011,07/28/2011,08/14/2010 Td 12/16/2003 Tdap 01/22/2014 Family History Medical History Relation Name Comments Coronary Artery Disease Father 50's Deafness Father Lung disorder Father Osteoporosis Father Cancer, Breast Negative Family History Cancer, Ovary Negative Family History Cataract Negative Family History Glaucoma Negative Family History Macular Degeneration Negative Family History Relation Name Status Comments Father Mother Maternal Grandfather Maternal Grandmother Paternal Grandfather Paternal Grandmother Social History Tobacco Use Types Packs/Day Years Used Date Smoking Tobacco: Former Cigarettes 0 1976 - 1981 Smokeless Tobacco: Never Comments:age 25 Alcohol Use Standard Drinks/Week Comments Yes 3 (1 standard drink = 0.6 oz pur e alcohol) PHQ-2 Answer Date Recorded PHQ-2 Score 0 09/09/2020 Comments No Sex and Gender Information Value Date Recorded Sex Assigned at Not on file Legal Sex Female 5:02 AM CDT Gender Identity Not on file Sexual Orientation Not on file 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 Not on file Not on file Last Filed Vital Signs Vital Sign Reading Time Taken Comments Blood Pressure 116/70 07/20/2020 12:15 PM CDT Pulse 70 08/01/2020 9:23 AM CDT Temperature 36.5 C (97.7 F) 05/28/2020 6:19 AM CDT Respiratory Rate 16 05/28/2020 6:19 AM CDT Oxygen Saturation 99% 05/28/2020 6:19 AM CDT Inhaled Oxygen Concentration - - Weight 92.5 kg (203 lb 14.4 oz) 05/26/2020 9:37 PM CDT Height 157.5 cm (5' 2) 05/26/2020 9:37 PM CDT Body Mass Index 37.29 05/26/2020 9:37 PM CDT Plan of Treatment Health Maintenance Due Date Last Done Comments Hep C Screening (Preventive Services) 1955 Tuberculosis Screening 1955 Pneumococcal 50+ Yrs (1 of 1 - PCV) 2005 Zoster/Shingles (1 of 2) 2005 Mammogram 09/23/2021 09/23/2020, 11/0 05/2018, 03/15/2017, Additional history exists Cholesterol 05/27/2022 05/27/2017, 01/12, 11/01/2011, Additional history exists DTaP/Tdap/Td (2 - Tdap) 01/23/2024 01/22/2014, 12/15 COVID-19 Vaccine (2 - season) 2024 01/18/2021 Influenza (#1) 2024 07/20/2020, 08/14, 08/29/2015, Additional history exists Medicare Annual Wellness Visit 10/14/2024 Colonoscopy 07/12/2027 07/12/2017, 07/15, 08/05/2006, Additional history exists RSV (1 - 1-dose 75+ series) 2030 Dexa Completed 12/03/2011, 09/13, 09/18/2007, Additional history exists HepA Aged Out No longer eligi ble based on patient's age to complete this topic HepB Aged Out No longer eligi ble based on patient's age to complete this topic Hib Aged Out No longer eligi ble based on patient's age to complete this topic IPV (Polio) Aged Out No longer eligi ble based on patient's age to complete this topic MCV4 Aged Out No longer eligi ble based on patient's age to complete this topic Meningococcal B Aged Out No longer el igible based on patient's age to complete this topic Procedures Procedure Name Priority Date/Time Associated Diagnosis Comments MM MAMMOGRAM SCREENING BILAT W 3D KELVIN W CAD Routine 09/23/2020 9:59 AM [employer] COLONOSCOPY Routine 07/12/2017 9:19 AM CDT Screen for colon cancer LIPID PANEL & DIRECT LDL (IF NEEDED) Routine 05/27/2017 7:37 AM CDT Screening cholesterol level DXA BONE DENSITY SPINE/HIP Routine 12/03/2011 8:31 AM [employer] from Last 3 Months or Most Recently Relevant to Health Maintenance Results * MM Mammogram Screening Bilat W 3D Kelvin W CAD (09/23/2020 9:59 AM [employer]) Anatomical Region Laterality Modality Breast Bilateral Mammography Impressions 09/26/2020 8:40 AM [employer] : ACR BI-RADS Category 1: Negative RECOMMENDATION: Follow Up Imaging in 12 months - Bilateral The results and recommendations of this examination will be communicated to the patient. Narrative 09/26/2020 8:40 AM [employer] MM MAMMOGRAM SCREENING BILAT W 3D KELVIN W CAD performed on 09/23/20 Compared to: 08/21/2018 MM Mammogram Screening Bilat W 3D Kelvin W CAD, 03/15/2017 MM Mammogram Screening Bilat W CAD, and 10/01/2013 MAMMOGRAM SCREENING BILATERAL FINDINGS: Bilateral screening mammogram was performed with the assistance of Computer-Aided Detection and breast tomosynthesis. The breasts have scattered areas of fibroglandular density. There is no radiographic evidence of malignancy. us Remi Jones MD RAD ERIC Final Result * COLONOSCOPY [[id number]] (07/12/2017 9:19 AM CDT) 07/12/2017 9:19 AM CDT Narrative GI ([facility]) - 07/12/2017 9:41 AM CDT Instrument Name: 181 Indications: Screening for colorectal malignant neoplasm Providers: Senthil Lynch MD, Suyapa Sparks LPN, Avtar Robertson MD: Medicines: Fentanyl 100 micrograms IV, Midazolam 1 mg IV, Diphenhydramine 25 mg IV Complications: No immediate complications. Procedure: Pre-Anesthesia Assessment: - Prior to the procedure, a History and Physical was performed, and patient medications and allergies were reviewed. The patient is competent. The risks and benefits of the procedure and the sedation options and risks were discussed with the patient. All questions were answered and informed consent was obtained. Patient identification and proposed procedure were verified by the physician in the procedure room. Mental Status Examination: alert and oriented. Airway Examination: normal oropharyngeal airway and neck mobility. Respiratory Examination: clear to auscultation. CV Examination: normal. Prophylactic Antibiotics: The patient does not require prophylactic antibiotics. Prior Anticoagulants: The patient has taken no previous anticoagulant or antiplatelet agents. ASA Grade Assessment: II - A patient with mild systemic disease. After reviewing the risks and benefits, the patient was deemed in satisfactory condition to undergo the procedure. The anesthesia plan was to use moderate sedation / analgesia (conscious sedation). Immediately prior to administration of medications, the patient was re-assessed for adequacy to receive sedatives. The heart rate, respiratory rate, oxygen saturations, blood pressure, adequacy of pulmonary ventilation, and response to care were monitored throughout the procedure. The physical status of the patient was re-assessed after the procedure. After I obtained informed consent, the scope was passed under direct vision. Prior to sedation, patient identity and procedure was reverified. Throughout the procedure, the patient's blood pressure, pulse, and oxygen saturations were monitored continuously. The PCF-H190L was introduced through the anus and advanced to the terminal ileum. The colonoscopy was performed without difficulty. The patient tolerated the procedure well. The quality of the bowel preparation was good. Findings: The perianal and digital rectal examinations were normal. Multiple small and large-mouthed diverticula were found in the entire colon. Internal hemorrhoids were found during retroflexion. The hemorrhoids were small and Grade I (internal hemorrhoids that do not prolapse). The exam was otherwise without abnormality on direct and retroflexion views. Moderate Sedation: Moderate (conscious) sedation was administered by the endoscopy nurse and supervised by the endoscopist. The following parameters were monitored: oxygen saturation, heart rate, blood pressure, respiratory rate, EKG, adequacy of pulmonary ventilation, and response to care. Total physician intraservice time was 7 minutes. Impression: - Diverticulosis in the entire examined colon. - Internal hemorrhoids. - The examination was otherwise normal on direct and retroflexion views. - No specimens collected. Recommendation: - Discharge patient to home. - Resume previous diet. - Continue present medications. - Repeat colonoscopy in 10 years for surveillance. - The findings and recommendations were discussed with the patient. Procedure Code(s): --- Professional --- 03252, Colonoscopy, flexible; diagnostic, including collection of specimen(s) by brushing or washing, when performed (separate procedure) Diagnosis Code(s): --- Professional --- Z12.11, Encounter for screening for malignant neoplasm of colon K64.0, First degree hemorrhoids K57.30, Diverticulosis of large intestine without perforation or abscess without bleeding CPT copyright 2016 [employer]. All rights reserved. The codes documented in this report are preliminary and upon steam meter reader review may be revised to meet current compliance requirements. Attending Participation: MD Senthil Clemons MD 07/12/2017 9:41:22 AM This report has been signed electronically. Number of Addenda: 0 Note Initiated On: 07/12/2017 9:19 AM Procedure Note Senthil Lynch MBBS - 07/12/2017 Instrument Name: 181 Indications: Screening for colorectal malignant neoplasm Providers: Senthil Lynch MD, Suyapa Sparks LPN, Avtar Robertson MD: Medicines: Fentanyl 100 micrograms IV, Midazolam 1 mg IV, Diphenhydramine 25 mg IV Complications: No immediate complications. Procedure: Pre-Anesthesia Assessment: - Prior to the procedure, a History and Physical was performed, and patient medications and allergies were reviewed. The patient is competent. The risks and benefits of the procedure and the sedation options and risks were discussed with the patient. All questions were answered and informed consent was obtained. Patient identification and proposed procedure were verified by the physician in the procedure room. Mental Status Examination: alert and oriented. Airway Examination: normal oropharyngeal airway and neck mobility. Respiratory Examination: clear to auscultation. CV Examination: normal. Prophylactic Antibiotics: The patient does not require prophylactic antibiotics. Prior Anticoagulants: The patient has taken no previous anticoagulant or antiplatelet agents. ASA Grade Assessment: II - A patient with mild systemic disease. After reviewing the risks and benefits, the patient was deemed in satisfactory condition to undergo the procedure. The anesthesia plan was to use moderate sedation / analgesia (conscious sedation). Immediately prior to administration of medications, the patient was re-assessed for adequacy to receive sedatives. The heart rate, respiratory rate, oxygen saturations, blood pressure, adequacy of pulmonary ventilation, and response to care were monitored throughout the procedure. The physical status of the patient was re-assessed after the procedure. After I obtained informed consent, the scope was passed under direct vision. Prior to sedation, patient identity and procedure was reverified. Throughout the procedure, the patient's blood pressure, pulse, and oxygen saturations were monitored continuously. The PCF-H190L was introduced through the anus and advanced to the terminal ileum. The colonoscopy was performed without difficulty. The patient tolerated the procedure well. The quality of the bowel preparation was good. Findings: The perianal and digital rectal examinations were normal. Multiple small and large-mouthed diverticula were found in the entire colon. Internal hemorrhoids were found during retroflexion. The hemorrhoids were small and Grade I (internal hemorrhoids that do not prolapse). The exam was otherwise without abnormality on direct and retroflexion views. Moderate Sedation: Moderate (conscious) sedation was administered by the endoscopy nurse and supervised by the endoscopist. The following parameters were monitored: oxygen saturation, heart rate, blood pressure, respiratory rate, EKG, adequacy of pulmonary ventilation, and response to care. Total physician intraservice time was 7 minutes. Impression: - Diverticulosis in the entire examined colon. - Internal hemorrhoids. - The examination was otherwise normal on direct and retroflexion views. - No specimens collected. Recommendation: - Discharge patient to home. - Resume previous diet. - Continue present medications. - Repeat colonoscopy in 10 years for surveillance. - The findings and recommendations were discussed with the patient. Procedure Code(s): --- Professional --- 84829, Colonoscopy, flexible; diagnostic, including collection of specimen(s) by brushing or washing, when performed (separate procedure) Diagnosis Code(s): --- Professional --- Z12.11, Encounter for screening for malignant neoplasm of colon K64.0, First degree hemorrhoids K57.30, Diverticulosis of large intestine without perforation or abscess without bleeding CPT copyright 2016 [employer]. All rights reserved. The codes documented in this report are preliminary and upon steam meter reader review may be revised to meet current compliance requirements. Attending Participation: MD Senthil Clemons MD 07/12/2017 9:41:22 AM This report has been signed electronically. Number of Addenda: 0 Note Initiated On: 07/12/2017 9:19 AM Senthil [facility]JESUS [facility] Final Result Performing Organization Address City/[facility] Co de Phone Number GI ([facility]) [facility], [place] * (ABNORMAL) Lipid Panel and Direct LDL(If Needed) (05/27/2017 7:37 AM CDT) Hours Fasting 12 hours [facility] Cholesterol 291(H) 0 - 199 mg/dl [facility] Triglyceride 228(H) 0 - 149 mg/dl [facility] HDL 57 >40 mg/dl [facility] LDL, Calc. 188(H) 0 - 129 mg/dl [facility] Non HDL Chol, Calc 234 mg/dl [facility] 05/27/2017 7:37 AM CDT 05/27/2017 7:38 AM CDT Narrative [facility] - 05/27/2017 1:24 PM CDT Performed at [facility], [address] [place] [id number] Remi Jones MD LAB_1 Final Result Performing Organization Address City/[facility] Co de Phone Number [facility] [phone] * DEXA BONE DENSITY SPINE/HIP ROUTINE (12/03/2011 8:31 AM [employer]) Anatomical Region Laterality Modality Lower Extremity, Spine, Hip, L-Spine Other Narrative 12/03/2011 3:04 PM [employer] WHO Criteria for the diagnosis of osteoporosis: T-score >-1 Normal T-score between -1 and -2.5 Osteopenia T-score <-2.5 Osteoporosis Fracture risk: T-score -1 2 times increased -2 4 times increased -3 6 times increased *With previous fragility fracture, risk of subsequent fracture doubles again SCREENING FOR OSTEO, 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: [employer] Demographics Age: 56 yr Gender: female Height (inches) :5'2 Weight (lbs):183lbs Country of origin:[place] Race: Medical/Surgical History Menstrual periods:1-None Age of menopause:38 Taking or have been taking Estrogen replacement therapy for more than one year:No Family history of osteoporosis:None Broken bones after the age of 45 not due to major trauma:No If yes, indicate which area: Currently taking medication for the prevention/treatment of osteoporosis: 1-No Have or had listed medical conditions:1-None Had surgical procedures listed:1-None Taking or have taken listed medications:Cholesterol lowering drug Fallen in the last 12 months:No Dietary/Habit Alcohol 3units or more per day (on average):No Currently smoking:No If no, smoked for more than 2 years in the past:Yes Do you take calcium supplements:Yes Regularly take vitamin D supplements:Yes Drink more than two cups of caffeinated coffee or soft drinks daily:Yes Other pertinent history:patient was born in [place] Dual-X-ray Absorptiometry (DXA Results) AP spine (L1-L4) Left hip (neck) Left hip (total) Left forearm (1/3) BMD (gm/cm2) 0.805 0.719 0.857 T score -2.2 -1.2 -0.7 Z score -1.1 -0.1 0.0 %change from previous scan -1.0 -2.6 N/A Diagnosis: *Osteopenia. Recommendations: *Ensure appropriate calcium and vitamin D intake. Comments: *WHO criteria are for postmenopausal women. The changes in bone mineral density at the lumbar spine and hip are clinically unimportant The FRAX tool has been developed by WHO to evaluate fracture risk to patients. It is based on individual patient models that integrate the risks associated with clinical risk factors as well as bone mineral density (BMD) at the femoral neck. The FRAX algorithms give the 10-year probability of fracture. The output is a 10-year probability of hip fracture and the 10-year probability of a major osteoporotic fracture (clinical spine, forearm, hip or shoulder fracture). Consider FDA-approved medical therapies in postmenopausal women and men aged 50 years and older, based on the following: A hip or vertebral (clinical or morphometric) fracture. T-score ? -2.5 at the femoral neck or spine after appropriate evaluation to exclude secondary causes. Low bone mass(T-score -1.0 and -2.5 at the femoral neck or spine) and a 10-year probability of a hip fracture ? 3% or a 10-year probability of a major osteoporosis-related fracture ? 20% based on the [place]-adapted WHO algorithm. Clinicians judgment and/or patient preferences may indicate treatment for people with 10-year fracture probabilities above or below these levels. 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: [employer] Demographics Age: 56 yr Gender: female Height (inches) :5'2 Weight (lbs):183lbs Country of origin:[place] Race: Medical/Surgical History Menstrual periods:1-None Age of menopause:38 Taking or have been taking Estrogen replacement therapy for more than oneyear:No Family history of osteoporosis:None Broken bones after the age of 45 not due to major trauma:No If yes, indicate which area: Currently taking medication for the prevention/treatment of osteoporosis:1-No Have or had listed medical conditions:1-None Had surgical procedures listed:1-None Taking or have taken listed medications:Cholesterol lowering drug Fallen in the last 12 months:No Dietary/Habit Alcohol 3units or more per day (on average):No Currently smoking:No If no, smoked for more than 2 years in the past:Yes Do you take calcium supplements:Yes Regularly take vitamin D supplements:Yes Drink more than two cups of caffeinated coffee or soft drinks daily:Yes Other pertinent history:patient was born in [place] Dual-X-ray Absorptiometry (DXA Results) AP spine (L1-L4) Left hip (neck) Left hip (total) Left forearm (1/3) BMD (gm/cm2) 0.805 0.719 0.857 T score -2.2 -1.2 -0.7 Z score -1.1 -0.1 0.0 %change from previous scan -1.0 -2.6 N/A Diagnosis: *Osteopenia. Recommendations: *Ensure appropriate calcium and vitamin D intake. Comments: *WHO criteria are for postmenopausal women. The changes in bone mineral density at the lumbar spine and hip areclinically unimportant The FRAX tool has been developed by WHO to evaluate fracture risk topatients. It is based on individual patient models that integrate therisks associated with clinical risk factors as well as bone mineraldensity (BMD) at the femoral neck. The FRAX algorithms give the 10-year probability of fracture. The outputis a 10-year probability of hip fracture and the 10-year probability of amajor osteoporotic fracture (clinical spine, forearm, hip or shoulderfracture). Consider FDA-approved medical therapies in postmenopausal women and menaged 50 years and older, based on the following: A hip or vertebral (clinical or morphometric) fracture. T-score <= -2.5 at the femoral neck or spine after appropriateevaluation to exclude secondary causes. Low bone mass(T-score -1.0 and -2.5 at the femoral neck or spine) and [id number] probability of a hip fracture >= 3% or a 10-year probability of amajor osteoporosis-related fracture >= 20% based on the [place]-adapted WHOalgorithm. Clinicians judgment and/or patient preferences may indicate treatmentfor people with 10-year fracture probabilities above or below theselevels. Remi Jones MD RAD DEXA Final Result from Last 3 Months or Most Recently Relevant to Health Maintenance Insurance [employer] SELF INS[employer]ED [facility] MEDICARE ADVANTAGE SELF INSURED [employer] SELF INSURED COMM SELF INSURED DENTAL Advance Directives * Full Code (Latest Code Status on File) Date Activated Date Inactivated Comments 05/26/2020 9:38 PM 05/28/2020 1:16 PM Care Teams Aquatic Facility Manager Relationship Specialty Start Date End Date Remi Cosby MD [address] [place] [address] PCP - General 05/14/06
--- OUTSIDE RECORDS SUMMARY | 2025-01-11 11:54 | XMS_ITS | Encounter Summary ---
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
--- OUTSIDE RECORDS SUMMARY | 2025-01-11 11:54 | XMS_ITS | Encounter Summary ---
Author Organization [facility] Address [address] [place] [address] Care Team Providers Care Casino Slot Supervisor Name Role Phone Alea Jones MD, Remi Esparza Primary Care Provide r Encounter Details Date Type Department Care Team (Late st Contact Info) Description 03/28/2017 Consent for Procedure/Treatment [facility] Department Social History Tobacco Use Types Packs/Day Years [...] R/O COVID19 09/10/2020 09/10/2020 09/12/2020 8:25 AM SCHOOL OFFICE ASSISTANT COVID19 09/10/2020 09/10/2020 10/01/2020 3:17 AM SCHOOL OFFICE ASSISTANT documented as of this encounter Care Teams Casino Slot Supervisor Relationship Specialty Start Date End Date Remi Cosby MD [address] [place] [address] PCP - General 05/14/06 documented as of this encounter
--- NOTE | 2025-01-11 13:05 | CRLHL7_ITS ---
For Patients: As a result of the Century Cures Act, medical imaging exams and procedure reports are released immediately into your electronic medical record. You may view this report before your referring provider. If you have questions, please contact your health care provider. INDICATION: Fall, forehead laceration. TECHNIQUE: Noncontrast CT of the head with multiplanar reconstruction utilizing bone and soft tissue algorithms. COMPARISON: None available. FINDINGS: No acute intracranial hemorrhage. The wallis-white matter interface is preserved. The ventricles are normal in size. No abnormal extra-axial fluid collection is identified. Left frontal scalp hematoma. No underlying calvarial fracture. Symmetric globes. Mild mucosal thickening within the maxillary alveolar recesses. IMPRESSION: 1. No acute intracranial hemorrhage. 2. Left frontal scalp hematoma. No underlying calvarial fracture. 3. Mild mucosal thickening within the maxillary alveolar recesses. Please note that all CT scans at this facility use dose modulation, iterative reconstruction, and/or weight-based dosing when appropriate to reduce radiation dose to as low as reasonably achievable. Dictated by Galdino Melo MD @ 01/11/2025 1:37:10 PM (Electronically Signed)
--- NOTE | 2025-01-11 13:08 | ED.FALL ---
HPI - Fall General Chief Complaint: Fall/Minor Trauma Stated Complaint: Fell Saturday-cut on forehead Time Seen by Provider: 01/11/25 12:35 History of Present Illness HPI Narrative: This 69-year-old female comes in with the injury to her forehead that occurred last night. She states that she was up to the bathroom and tripped over a towel that was laying on the floor. She fell into the toilet apparently as that is where she saw some blood. She states that she did have loss of consciousness. She was able to get up and clean herself up and went back to bed and comes in now for evaluation and treatment. She does not report significant headache. She is not on any anticoagulants. She has a rather large laceration across her forehead measuring approximately 8 cm. Related Data Home Medications ?Medication ?Instructions ?Recorded ?Confirmed atorvastatin 1 tab PO HS 08/08/24 08/08/24 Allergies Allergy/AdvReac Type Severity Reaction Status Date / Time mold Allergy Unknown Verified 08/08/24 10:06 pollen extracts Allergy Unknown Verified 08/08/24 10:06 Review of Systems Status of ROS: Reports: 10 or more systems reviewed and unremarkable except as noted in History and below Narrative: Constitutional: No fevers, no weight gain or loss. Eyes: No discharge. No vision changes. HENT: No congestion, no sore throat, no ear pain. Cardiovascular: No chest pain, no palpitations. Respiratory: No shortness of breath, no wheezes, no cough. Gastrointestinal: No abdominal pain, no vomiting, no diarrhea. Genitourinary: No dysuria, no hematuria. Musculoskeletal: Normal range of motion. Skin: No rashes, no pruritis. Neurological: No dizziness, weakness, sensory change, speech change. Endo/Heme/Allergies: No bruising or bleeding. No polydipsia. Pysch: no suicidality, no anxiety, no insomnia. All other systems reviewed and are negative. [facility] Medical History (Updated 01/11/25 @ 14:14 by Karsten Robb MD) Hyperlipidemia ?E78.5 - Hyperlipidemia, unspecified (ICD-10) Hypertension ?I10 - Essential (primary) hypertension (ICD-10) Social History Smoking Status: Never smoker Do you use any of these nicotine containing products: None Second hand tobacco smoke exposure: No How often do you have a drink containing alcohol: monthly or less How many standard drinks containing alcohol do you have on a typical day: 1 or 2 How often do you have six or more drinks on one occasion: Never AUDIT-C Alcohol total score: 1 Non-prescribed substance use: denies use service: No Exam Narrative: Exam Narrative: Constitutional: Well-developed, well-nourished, no acute distress. HEENT: 8 cm linear laceration across the mid to left forehead with mild underlying swelling. Neck: Normal range of motion. Nontender. Supple. Heart: Regular. No murmurs. Normal rate. Intact distal pulses. Lungs: Clear to auscultation. No chest discomfort. No wheezes, rhonchi, or rales. Abdomen: Normal bowel sounds. Nontender. No rebound tenderness. Genitalia: Deferred. Back: No midline tenderness. Normal range of motion. Extremities: Normal range of motion. No injury. Skin: Intact. No rash. Warm. No erythema or pallor. Neurologic: No altered sensation. No weakness. Alert and oriented. Psychiatric: No suicidality. No anxiety or depression. No insomnia. Nursing notes and vitals signs are reviewed. Const: Vital Signs, click to edit/add: Vital Signs - 24 hr 01/11/25 11:54 01/11/25 12:42 01/11/25 13:28 Temperature 97.2 F L Pulse Rate [Pulse Oximeter] 87 77 75 Respiratory Rate 18 18 18 Blood Pressure [Ri ght Upper Arm] 180/100 H 181/84 H 190/93 H Pulse Oximetry 96 97 96 Oxygen Delivery Me thod Room Air Room Air Room Air Course Vital Signs Vital signs: Initial Vital Signs Temperature 97.2 F L 01/11/25 11:54 Temperature Source Temporal Artery Scan 01/11/25 11:54 Pulse Rate 87 01/11/25 11:54 Respiratory Rate 18 01/11/25 11:54 Blood Pressure 180/100 H 01/11/25 11:54 Blood Pressure Mean 126 H 01/11/25 11:54 Blood Pressure Position Sitting 01/11/25 11:54 Pulse Oximetry 96 01/11/25 11:54 Oxygen Delivery Method Room Air 01/11/25 11:54 Vital Signs Temperature 97.2 F L 01/11/25 11:54 Pulse Rate 87 01/11/25 11:54 Respiratory Rate 18 01/11/25 11:54 Blood Pressure 180/100 H 01/11/25 11:54 Pulse Oximetry 96 01/11/25 11:54 Oxygen Delivery Method Room Air 01/11/25 11:54 Temperature 97.2 F L 01/11/25 11:54 Pulse Rate 75 01/11/25 13:28 Respiratory Rate 18 01/11/25 13:28 Blood Pressure 190/93 H 01/11/25 13:28 Pulse Oximetry 96 01/11/25 13:28 Oxygen Delivery Method Room Air 01/11/25 13:28 MDM - Fall MDM Narrative Medical decision making narrative: This patient comes in with a head injury as described above. She did have loss of consciousness related to this and so a CT scan is obtained and shows no sign of fracture or intracranial injury. The patient has a 8 cm linear laceration across the left middle aspect of her forehead. This wound occurred a bit more than 24 hours ago but seeing that there was a sizable gap and the development of a significant scar if not repaired, I did state that there is an advantage to pull the wound edges together despite the potential risk for infection. After anesthesia with 2% lidocaine I did clean out the wound and remove some of the clot that was forming to begin the healing process. This enabled me to completely approximate the wound edges. I placed 7 stitches in interrupted fashion about a cm from each other to approximate the wound edges and yet leave room for drainage if needed. Instructions regarding wound care were given and the need to return to clinic urgent care in 5-7 days for suture removal. Patient did receive a prescription for a few days of Keflex also. Discharge Plan Discharge Clinical Impression: Laceration Patient Disposition: Home, Self-Care Condition: Improved Additional Instructions: Keep wound clean and dry. Use [id number] medicines as needed and directed. Follow-up with clinic or urgent care in 5-7 days for suture removal. Return if worsening. Prescriptions: No Action atorvastatin [Lipitor] 1 tab PO HS Follow Up/Referrals: Stella Coyne MD [Primary Care Provider] - Stand Alone Forms: [employer] Info Instructions
--- OUTSIDE RECORDS SUMMARY | 2025-01-11 13:20 | XMS_ITS | Encounter Summary ---
Author Organization [facility] Address [address] [place] [address] [address] Team Prov[address] Care Ct Scan Technician Name Role Phone Alea Jones MD, Remi [...] R/O COVID19 09/10/2020 09/10/2020 09/12/2020 8:25 AM TELETYPESETTER OPERATOR COVID19 09/10/2020 09/10/2020 10/01/2020 3:17 AM TELETYPESETTER OPERATOR documented as of this encounter Care Teams Ct Scan Technician Relationship Specialty Start Date End Date Remi Cosby MD [address] [facility] [place] [address] PCP - General 05/14/06 documented as of this encounter
--- OUTSIDE RECORDS SUMMARY | 2025-01-11 13:20 | XMS_ITS | Encounter Summary ---
Author Organization [facility] Address [address] [place] [address] Care Team Providers Care Electronics Engineering Professor Name Role Phone Alea Jones MD, Remi [...] R/O COVID19 09/10/2020 09/10/2020 09/12/2020 8:25 AM POULTRY EVISCERATOR COVID19 09/10/2020 09/10/2020 10/01/2020 3:17 AM POULTRY EVISCERATOR documented as of this encounter Care Teams Electronics Engineering Professor Relationship Specialty Start Date End Date Remi Cosby MD [address] [place] [address] PCP - General 05/14/06 documented as of this encounter
--- OUTSIDE RECORDS SUMMARY | 2025-01-11 13:20 | XMS_ITS | Encounter Summary ---
Author Organization [facility] Address [address] [place] [address] Care Team Providers Care Meat Stringer Name Role Phone Alea Jones MD, Remi Esparza Primary Care Provide r Encounter Details Date Type Department Care Team (Latest Contact Info) Description 03/28/2017 Consent for Procedure/Treatme nt [facility] [address] [place] [address] Tayler Johnson MD [address] [place] [address] [phone] RH INFORMED CONSENT Social History Tobacco Use [...] R/O COVID19 09/10/2020 09/10/2020 09/12/2020 8:25 AM PULP MAKING PLANT OPERATOR COVID19 09/10/2020 09/10/2020 10/01/2020 3:17 AM PULP MAKING PLANT OPERATOR documented as of this encounter Care Teams Meat Stringer Relationship Specialty Start Date End Date Remi Cosby MD [address] [place] [address] PCP - General 05/14/06 documented as of this encounter
--- OUTSIDE RECORDS SUMMARY | 2025-01-11 13:21 | XMS_ITS | Clinical Summary ---
Author Organization [facility] Address [address] [place] [address] Care Team Providers Care Block Breaker Operator Name Role Phone Alea Jones MD, Roan Sigrid Primary Care Provide r Source Comments You are receiving this document as you are listed as the primary care provider,follow-up provider, or the patient has been referred to you for consultation.This is in compliance with the Medicare and[facility] EHR Incentive Program,which states Providers who transition their patient to another setting of careor provider of care or refers their patient to another provider of care shouldprovide summary care record for each transition of care or referral. [facility] Allergies Active Allergy Reactions Criticality Noted Date [...] and thigh 02/01/2012 Backache 04/12/2009 Overview (07/14/2015): [facility] Telangiectasia 07/15/2008 Pure hypercholesterolemia 03/01/2005 Esophageal reflux 04/14/2004 Overview (06/05/2017): ESOPHAGEAL REFLUX(aka GERD) Mixed incontinence urge and stress (male)(female ) 04/14/2004 Overview (06/05/2017): URGE & STRESS MIXED INCONTINENCE(aka INCONTIN) Obesity 04/14/2004 Overview (07/14/2015): [facility] Immunizations Immunization Administration Dates Next Due Flu Vac (3+ yrs) 07/07/2009,08/13/2008 Influenza IIV4 (Quadrivalent ) 0.5mL (07614) 07/20/2020 Influenza, Unspecified Formulation 08/29,08/16/2014,08/10/2013,2011,07/28/2011,08/14/2010 Td 12/16/2003 [...] KELVIN W CAD Routine 09/23/2020 9:59 AM GARMENT PARTS CUTTER MACHINE COLONOSCOPY Routine 07/12/2017 9:19 AM CDT Screen for colon cancer LIPID PANEL & DIRECT LDL (IF NEEDED) Routine 05/27/2017 7:37 AM CDT Screening cholesterol level DXA BONE DENSITY SPINE/HIP Routine 12/03/2011 8:31 AM GARMENT PARTS CUTTER MACHINE from Last 3 Months or Most Recently Relevant to Health Maintenance Results * MM Mammogram Screening Bilat W 3D Kelvin W CAD (09/23/2020 9:59 AM GARMENT PARTS CUTTER MACHINE) Anatomical Region Laterality Modality Breast Bilateral Mammography Impressions 09/26/2020 8:40 AM GARMENT PARTS CUTTER MACHINE : ACR BI-RADS Category 1: Negative RECOMMENDATION: Follow Up Imaging in 12 months - Bilateral The results and recommendations of this examination will be communicated to the patient. Narrative 09/26/2020 8:40 AM GARMENT PARTS CUTTER MACHINE MM MAMMOGRAM SCREENING BILAT W 3D KELVIN [...] MD RAD ERIC Final Result * COLONOSCOPY [[id number]] (07/12/2017 9:19 AM CDT) 07/12/2017 9:19 AM [...] the patient. Procedure Code(s): --- Professional --- 87959, Colonoscopy, flexible; diagnostic, including collection of specimen(s) by brushing or washing, when performed (separate procedure) Diagnosis Code(s): --- Professional --- Z12.11, Encounter for screening for malignant neoplasm of colon K64.0, First degree hemorrhoids K57.30, Diverticulosis of large intestine without perforation or abscess without bleeding CPT copyright 2016 [employer]. All rights reserved. The codes documented in this report are preliminary and upon medical record coder review may be revised to meet current [...] the patient. Procedure Code(s): --- Professional --- 86806, Colonoscopy, flexible; diagnostic, including collection of specimen(s) by brushing or washing, when performed (separate procedure) Diagnosis Code(s): --- Professional --- Z12.11, Encounter for screening for malignant neoplasm of colon K64.0, First degree hemorrhoids K57.30, Diverticulosis of large intestine without perforation or abscess without bleeding CPT copyright 2016 [employer]. All rights reserved. The codes documented in this report are preliminary and upon medical record coder review may be revised to meet current compliance requirements. Attending Participation: MD Senthil Clemons MD 07/12/2017 9:41:22 AM This report has been signed electronically. Number of Addenda: 0 Note Initiated On: 07/12/2017 9:19 AM Senthil DEJESUS DIGESTIVE CARE Final Result Performing Organization Address City/[facility] Co de Phone Number GI (PROVATION) [facility], [place] * (ABNORMAL) Lipid Panel and Direct LDL(If [...] - 05/27/2017 1:24 PM CDT Performed at [facility], [address] [place] [id number] Remi Jones MD LAB_1 Final Result Performing Organization Address [facility] Co de Phone Number [facility] [phone] * DEXA BONE DENSITY SPINE/HIP ROUTINE (12/03/2011 8:31 AM GARMENT PARTS CUTTER MACHINE) Anatomical Region Laterality Modality Lower Extremity, Spine, Hip, L-Spine Other Narrative 12/03/2011 3:04 PM GARMENT PARTS CUTTER MACHINE WHO Criteria for the diagnosis of osteoporosis: T-score >-1 Normal T-score between -1 and -2.5 Osteopenia T-score <-2.5 Osteoporosis Fracture risk: T-score -1 2 times increased -2 4 times increased -3 6 times increased *With previous fragility fracture, risk of subsequent fracture doubles again SCREENING FOR OSTEO, HOLD CALCIUM Video Arcade Manager and Model of Instrument: Just Above Cost Demographics Age: 56 yr Gender: female Height [...] fracture doublesagain SCREENING FOR OSTEO, HOLD CALCIUM Video Arcade Manager and Model of Instrument: Just Above Cost Demographics Age: 56 yr Gender: female Height [...] at the femoral neck or spine) and g22-deol probability of a hip fracture >= 3% or a 10-year probability of amajor osteoporosis-related fracture >= 20% based on the [place]-adapted WHOalgorithm. Clinicians judgment and/or patient preferences may indicate treatmentfor people with 10-year fracture probabilities above or below theselevels. Remi Jones MD RAD DEXA Final Result from Last 3 Months or Most Recently Relevant to Health Maintenance Insurance [employer] SELF INSURED [facility] MEDICARE ADVANTAGE SELF INSURED [employer] SELF INSURED COMM SELF INSURED DENTAL Advance Directives * Full Code (Latest Code Status on File) Date Activated Date Inactivated Comments 05/26/2020 9:38 PM 05/28/2020 1:16 PM Care Teams Block Breaker Operator Relationship Specialty Start Date End Date Remi Cosby MD [address] [place] [address] PCP - General 05/14/06
--- OUTSIDE RECORDS SUMMARY | 2025-01-11 13:21 | XMS_ITS | Clinical Summary ---
Author Organization [employer] [facility] Address [address] [place] [id number] Care Team Providers Care Dismantler Name Role Phone Clinic, No Pcp Or [...] Department Care Team Description 01/11/2025 Nurse Triage [facility] Centralized Nurse Triage Clinic, No Pcp Or Fall (Head injury) 11/26/2024 11:00 AM LEAK OPERATOR [employer] Ancillary Procedure [facility] [address] [place] [address] 11/26/2024 7:40 AM LEAK OPERATOR [employer] Office Visit [facility] [address] [place] [address] Stella Coyne MD Medicare ANNUAL (subsequent) Visit 11/26/2024 Travel 11/25/2024 Refill [facility] [address] [place] [address] Stella Coyne MD Refill Request (Atorvastatin) 11/21/2024 [...] Comments Blood Pressure 138/84 11/26/2024 7:47 AM LEAK OPERATOR [employer] Pulse 74 11/26/2024 7:47 AM LEAK OPERATOR [employer] Temperature 36.9 C (98.4 F) 09/16/2024 8:56 AM LEAK OPERATOR [employer] Respiratory Rate - - Oxygen Saturation 95% 11/26/2024 7:47 AM LEAK OPERATOR [employer] Inhaled Oxygen Concentration - - Weight 84.5 kg (186 lb 4.8 oz) 11/26/2024 7:47 A M LEAK [employer]PER[employer] Height 157 cm (5' 1.81) 11/26/2024 7:47 AM LEAK OPERATOR [employer] Body Mass Index 34.28 11/26/2024 7:47 AM LEAK OPERATOR [employer] Plan of Treatment Health Maintenance Due Date [...] KELVIN BILAT SCREEN Routine 11/26/2024 11:12 AM LEAK OPERATOR [employer] Visit for screening mammogram LIPID PANEL W REFLEX MEASURED LDL Routine 11/26/2024 8:04 AM LEAK OPERATOR [employer] Hypercholesterolemi a GLUCOSE, FASTING Routine 11/26/2024 8:04 AM LEAK OPERATOR [employer] Screening for diabetes mellitus COLONOSCOPY DIAGNOSTIC Routine 09/28/2024 12:00 AM LEAK OPERATOR [employer] Diverticulitis XR DXA BONE DENSITY 2 SITES AXIAL Routine 10/28/2023 11:14 AM LEAK OPERATOR [employer] Menopause ANTI HCV Routine 09/23/2023 9:00 AM LEAK OPERATOR [employer] Need for hepatitis C screening test from Last 3 Months or Most Recently Relevant to Health Maintenance Results * XR MAMMO KELVIN BILAT SCREEN (11/26/2024 11:12 AM LEAK OPERATOR [employer]) Anatomical Region Laterality Modality BREASTS, Breast Left, Breast Right Bilateral Mammography Impressions 11/26/2024 3:29 PM LEAK OPERATOR [employer] There is no radiographic evidence for malignancy. Recommend annual mammograms. MAMMOGRAM ASSESSMENT: ACR 1 Negative PATIENTS: You will also receive a letter with your examination results in an easy to read format. If you have questions about your results, please contact your referring provider. Narrative 11/26/2024 3:29 PM LEAK OPERATOR [employer] For Patients: As a result of the Century Cures Act, medical imaging exams and procedure reports are released immediately into your electronic medical record. You may view this report before your referring provider. If you have questions, please contact your health care provider. XR MAMMO KELVIN BILAT SCREEN [[id number]] CLINICAL HISTORY: This is an asymptomatic 69 [...] W REFLEX MEASURED LDL (11/26/2024 8:04 AM LEAK OPERATOR [employer]) CHOLESTEROL, TOTAL 195 <200 mg/dL [facility] HDL CHOLESTEROL 77 > OR = 50 mg/dL [facility] TRIGLYCERIDES 168(H) <150 mg/dL [facility] LDL-CHOLESTEROL 91 mg/dL (calc) [facility] Comment: Reference range: <100 Desirable range <100 mg/dL for primary prevention; <70 mg/dL for patients with CHD or diabetic patients with > or = 2 CHD risk factors. LDL-C is now calculated using the Victoria calculation, which is a validated novel method providing better accuracy than the Friedewald equation in the estimation of LDL-C. Deonte SS et al. KARY. 2013;310(61): 5368-3413 (http://education.Dick or Bro/faq/RUM823) CHOL/HDLC RATIO 2.5 <5.0 (calc) [facility] NON HDL CHOLESTEROL 118 <130 mg/dL (calc) [facility] Comment: For patients with diabetes plus 1 major ASCVD risk factor, treating to a non-HDL-C goal of <100 mg/dL (LDL-C of <70 mg/dL) is considered a therapeutic option. Blood BLOOD SPECIMEN / Unknown 11/26/2024 8:04 AM LEAK OPERATOR [employer] 11/26/2024 8:04 AM LEAK OPERATOR [employer] us Stella Coyne MD CHEMISTRY Final R esult Reviews[facility] [address] [place] [address], [facility] [address] [place] [address] * (ABNORMAL) GLUCOSE, FASTING (11/26/2024 8:04 AM LEAK OPERATOR [employer]) [facility] GLUCOSE 108(H) 65 - 99 mg/dL [facility] Comment: Fasting reference interval For someone without known diabetes, a glucose value between 100 and 125 mg/dL is consistent with prediabetes and should be confirmed with a follow-up test. Blood BLOOD SPECIMEN / Unknown 11/26/2024 8:04 AM LEAK OPERATOR [employer] 11/26/2024 8:04 AM LEAK OPERATOR [employer] us Stella Coyne MD CHEMISTRY Final R esult [facility] [employer] [facility] [address] [place] [address], [facility] [address] [place] [address] * COLONOSCOPY DIAGNOSTIC (09/28/2024 12:00 AM LEAK OPERATOR [employer]) Stella Coyne MD GI PROCEDURE ORD Final Result * (ABNORMAL) XR DXA BONE DENSITY 2 SITES AXIAL (10/28/2023 11:14 AM LEAK OPERATOR [employer]) Anatomical Region Laterality Modality Spine, HIPS, HIPL, HIPR Other Impressions 10/30/2023 4:46 PM LEAK OPERATOR [employer] Osteopenia. RECOMMENDATIONS: The National Osteoporosis Foundation recommends [...] recommended in 3-5 years. Renu Gupta PA-C [facility] 10/30/2023 Narrative 10/30/2023 4:46 PM LEAK OPERATOR [employer] For Patients: Results are automatically released to your [employer]) account once available, in compliance with federal regulations. This means that you may see your results before your provider has had a chance to review them. Please allow 2-3 business days for your provider to comment on the results. XR DXA Bone Mineral Density (BMD) EXAM LOCATION: [facility] [address] [facility] [address] PATIENT NAME: Lynn Meyer DATE OF : [...] two scanners are made by the same child protective investigator. PROCEDURE: Dual-energy x-ray absorptiometry performed with routine [...] esult * ANTI HCV (09/23/2023 9:00 AM LEAK OPERATOR [employer]) HEPATITIS C ANTIBODY Non-Reacti ve Non-React florentin 09/23/2023 6:32 PM LEAK OPERATOR [employer] [facility] Comment:Please note, per www .CDC.gov: If a patient is known to be at high risk of HCV infection, or is symptomatic, and the physician's suspicion of HCV infection is high, HCV RNA testing is often employed and is of diagnostic value, even after an initial negative anti-HCV test result. Blood BLOOD SPECIMEN / Unknown Venipuncture / Unknown 09/23/2023 9:00 AM LEAK OPERATOR [employer] 09/23/2023 9:01 AM LEAK OPERATOR [employer] us Stella Coyne MD SEND OUTS Final R esult [facility] [address] [place] [address], [place] from Last 3 Months or Most Recently Relevant to Health Maintenance Insurance [facility] MR Care Teams Dismantler Relationship Specialty Start Date End Date Clinic, No Pcp Or . PCP - General 09/09/23
--- OUTSIDE RECORDS SUMMARY | 2025-01-11 13:21 | XMS_ITS | Encounter Summary ---
Author Organization [employer] Address [address] [place] [address] Care Team Providers Care Wall Attendant Name Role Phone Alea Jones MD, Remi [...] R/O COVID19 09/10/2020 09/10/2020 09/12/2020 8:25 AM WAREHOUSE WORKER 2ND SHIFT COVID19 09/10/2020 09/10/2020 10/01/2020 3:17 AM WAREHOUSE WORKER 2ND SHIFT documented as of this encounter Care Teams Wall Attendant Relationship Specialty Start Date End Date Remi Cosby MD [address] [place] [address] PCP - General 05/14/06 documented as of this encounter
== END 2025-01-11 15:05 | disposition home or self-care (01) ==
PROVIDERS: Emergency Provider Emergency Medicine Emergency Medical Services; PCP Family Medicine
DX: S01.81XA Laceration without foreign body of other part of head, initial encounter (principal); W18.09XA Striking against other object with subsequent fall, initial encounter
CPT/HCPCS: 12002; 70450; 99283; 99284